=== PATIENT | female | born 1995 | race Caucasian/White ===

== ENCOUNTER 2021-08-27 17:31 | Inpatient (IN) | payer OTHER, SELFPAY ==
--- NOTE | 2021-08-27 | ECG_ITS ---
Test Reason : MEDICAL CLEARANCE Blood Pressure : / mmHG Vent. Rate : 076 BPM Atrial Rate : 076 BPM P-R Int : 176 ms QRS Dur : 090 ms QT Int : 396 ms P-R-T Axes : 048 050 025 degrees QTc Int : 445 ms Normal sinus rhythm Normal ECG No previous ECGs available Referred By: Maxi Perez Electronically Signed By:Ac Smtih
[2021-08-27 17:42] VITALS: BP 153/99; PULSE 120; RESP 16; TEMP 36.8; O2SAT 97; BMI 42.9
[2021-08-27 18:24] LABS: Appearance Urine CLEAR; Color Urine DK YELLOW; Glucose Urine UA NEG (NEG); Leukocyte Esterase Urine NEG (NEG); Nitrite Urine NEG (NEG); Specific Gravity - Urine 1.025 (1.005-1.025); UACC Culture Trigger NO; Urine Blood 3+ (NEG); Urine Ketones NEG (NEG); Urine Protein TRACE MG/DL (NEG-TRACE)
[2021-08-27 18:25] LABS: UPreg QC Valid YES; Urine Pregnancy NEGATIVE (NEGATIVE)
[2021-08-27 18:38] LABS: Amphetamine Screen Urine Not Detected (Not Detect); Barbiturates, Urine Not Detected (Not Detect); Benzodiazepines Screen Urine Not Detected (Not Detect); Cannabinoid Screen Urine POSITIVE (Not Detect); Cocaine Screen Urine Not Detected (Not Detect); Fentanyl, urine Not Detected (Not Detect); Opiate Screen Urine Not Detected (Not Detect); Phencyclidine Screen Urine Not Detected (Not Detect)
[2021-08-27 18:47] LABS: Bacteria Urine 2+ /LPF; Squamous Epithelial Cell Urine 2+ /LPF; WBC Urine 0-2 /HPF (0-4)
[2021-08-27 19:14] LABS: MANUAL DIFF FLAG NO
[2021-08-27 19:20] LABS: Basophils Percent Auto 0.3 % (0-2); Eosinophils Absolute Auto 0.1 X10*3/uL (0.0-0.4); Eosinophils Percent Auto 0.4 % (0-4); Hematocrit 42.2 % (37.0-47.0); Hemoglobin 13.8 g/dl (12.0-16.0); Imm Gran Abs Auto 0.05 X10*3/uL (0.00-0.03); Imm Gran Pct Auto 0.4 % (0.0-0.4); Lymphocytes Absolute Auto 4.5 X10*3/uL (1.2-4.9); Mean Corpuscular HGB Conc 32.7 g/dl (31.0-35.0); Mean Corpuscular Hemoglobin 26.3 pg (27.0-33.0); Mean Corpuscular Volume 80.4 fL (80.0-98.0); Mean Platelet Volume 9.2 fL (9.4-12.3); Monocytes Absolute Auto 0.7 X10*3/uL (0.1-1.2); Monocytes Percent Auto 5.2 % (2-11); Neutrophils Absolute Auto 8.6 x10*3/uL (2.0-8.3); Neutrophils Percent Auto 61.7 % (45-73); Platelet Count 473 X10*3/uL (160-400); Red Blood Count 5.25 X10*6/uL (4.20-5.50); Red Cell Distribution Width 14.3 % (11.0-16.0)
[2021-08-27 19:37] LABS: Alanine Aminotransferase 14 U/L (0-31); Albumin Level 4.6 g/dL (3.5-5.0); Alkaline Phosphatase 99 U/L (39-117); Anion Gap 16 (12-20); Aspartate Amino Transferase 18 U/L (5-31); Bilirubin Total 0.4 mg/dL (0.0-1.0); Blood Urea Nitrogen 15 mg/dL (9-16); Calcium 9.8 mg/dL (8.4-10.2); Carbon Dioxide 21 mmol/L (22-29); Chloride 108 mmol/L (96-108); Creatinine Clr Calc Pharmacy 119.3; Estimated Glomerular Filt Rate > 60; Glucose Random 110 mg/dL (60-115); Potassium 3.9 mmol/L (3.3-5.1); Sodium 141 mmol/L (135-145)
[2021-08-27 20:18] LABS: COVID-19 Test Negative (Negative)
--- NOTE | 2021-08-27 21:22 | ED_ITS ---
HPI - General Adult General Chief complaint: Anxiety Stated complaint: unspecified anxiety disorder Source: patient Mode of arrival: ambulatory Limitations: no limitations History of Present Illness HPI narrative: 26-year-old female presents to ED for direct admission to inpatient psych for severe anxiety. Patient states anxiety so bad she not able to function. Patient states constantly crying. Patient admits not taking her psych medication for 1 week. Patient states she wants to sleep and not wake up, but denies having any actual suicidal thoughts or plan. Patient states severely anxious Related Data Home Medications Medication Instructions Recorded Confirmed bupropion HCl 150 mg 24 hr tablet, 1 tab PO DAILY 08/27/21 08/27/21 extended release escitalopram oxalate 10 mg tablet 1 tab PO DAILY 08/27/21 08/27/21 fluticasone propionate 50 2 spray intranasal QAM 08/27/21 08/27/21 mcg/actuation nasal spray,suspension hydroxyzine HCl 25 mg tablet 1 tab PO QID 08/27/21 08/27/21 loratadine 10 mg tablet 1 tab PO DAILY 08/27/21 08/27/21 Allergies Allergy/AdvReac Type Severity Reaction Status Date / Time codeine Allergy Rash Verified 08/27/21 17:52 morphine Allergy Rash Verified 08/27/21 17:52 Review of Systems Review of Systems: Severe anxiety. No chest pain or shortness of breath. Negative for pleurisy. Negative for swelling of lower extremities, calf pain, or coughing up blood. Negative recent long travel or recent surgery. Yes all other systems are reviewed and are negative PMFSH Social History Social History Advance Directives: No Advance Directives Information Provided: No Physical Exam ED Vital Signs: Vital Signs - 24 hr 08/27/21 17:42 Temperature 98.3 F Pulse Rate 120 H Respiratory Rate 16 Blood Pressure 153/99 H Pulse Oximetry 97 Oxygen Delivery Method Room Air BMI result Body Mass Index 42.9 Const General: cooperative, healthy appearing, comfortable, no acute distress, well developed, alert, awake and Physically active Orientation/consciousness: oriented to time and patient oriented x3 HENMT Head: Yes normal to inspection, Yes No palpable skull fracture present, Yes normocephalic, Yes atraumatic and No abrasion Eyes General: appearance normal, both eyes and all related structures Neck Neck: Yes normal visual inspection, Yes full ROM, Yes no lymphadenopathy, Yes no meningeal signs, Yes trachea midline, Yes supple, No anterior neck swelling and No tender Chest Chest palpation & inspection: normal inspection of the chest and normal palpation of entire chest wall Resp Effort & Inspection: normal respiratory effort and able to speak in complete sentences Auscultation: clear to auscultation bilaterally Cardio Jugular venous distension: no JVD Heart sounds: S1 normal heart sound present and S2 normal heart sound present GI Inspection: Yes normal to inspection and No abdominal wall ecchymosis Palpation (GI): Soft to palpation, not firm, nontender, no guarding and not rigid General: No CVA tenderness and Yes no CVA tenderness Back/Spine/Pelvis Back: no CVA tenderness, No CVA tenderness and No back tenderness Skin General skin exam: no rashes or lesions noted and elasticity normal Neuro General: oriented to time, patient oriented x3, gait normal, tone normal, no meningeal signs and CN's II-XI intact bilaterally Extrem General: Yes normal to inspection and Yes full ROM Psych Other: Anxious and crying Appearance: grossly normal and well kempt Course Course Course Narrative: Patient anxious and crying. Will do basic medical evaluation. Reevaluation(s) Reevaluation #1: Patient labs are normal. Patient hypertensive tachycardic due to anxiety. Psychiatrist ordered clonidine. Time: 21:27 Medical Decision Making [facility] Narrative Medical decision making narrative: Anxiety Lab Data Result diagrams: 08/27/21 19:10 08/27/21 19:10 Labs: Lab Results 08/27/21 08/27/21 08/27/21 Range/Units 18:11 18:11 18:11 WBC (4.8-10.8) X10*3/uL RBC (4.20-5.50) X10*6/uL Hgb (12.0-16.0) g/dl Hct (37.0-47.0) % MCV (80.0-98.0) fL MCH (27.0-33.0) pg MCHC (31.0-35.0) g/dl RDW (11.0-16.0) % Plt Count (160-400) X10*3/uL MPV (9.4-12.3) fL Immature Gran % (Auto) (0.0-0.4) % Neut % (Auto) (45-73) % Lymph % (Auto) (20-40) % Gregg % (Auto) (2-11) % Eos % (Auto) (0-4) % Baso % (Auto) (0-2) % Lymph # (Auto) (1.2-4.9) X10*3/uL [place]gg # (Auto) (0.1-1.2) X10*3/uL Eos # (Auto) (0.0-0.4) X10*3/uL Baso # (Auto) (0.0-0.2) X10*3/uL Abs Immat Gran (auto) (0.00-0.03) X10*3/uL Absolute Neuts (auto) (2.0-8.3) x10*3/uL Absolute Nucleated RBC (0.0-0.012) X10*3/uL Nucleated RBC % (auto) (0.0-0.2) /100WBC Sodium (135-145) mmol/L Potassium (3.3-5.1) mmol/L Chloride (96-108) mmol/L Carbon Dioxide (22-29) mmol/L Anion Gap (12-20) BUN (9-16) mg/dL Creatinine (0.5-1.4) mg/dL Estim Creat Clear Calc Estimated GFR Random Glucose (60-115) mg/dL Calcium (8.4-10.2) mg/dL Total Bilirubin (0.0-1.0) mg/dL AST (5-31) U/L ALT (0-31) U/L Alkaline Phosphatase (39-117) U/L Total Protein (6.5-8.0) g/dL Albumin (3.5-5.0) g/dL Urine Color DK YELLOW Urine Appearance CLEAR Urine pH 6.0 (5.0-8.0) Ur Specific [place] 1.025 (1.005-1.025) Urine Protein TRACE (NEG-TRACE) MG/DL Urine Glucose (UA) NEG (NEG) MG/DL Urine Ketones NEG (NEG) MG/DL Urine Blood 3+ H (NEG) Urine Nitrite NEG (NEG) Ur Leukocyte Esterase NEG (NEG) Urine RBC 1-4 (0) /HPF Urine WBC 0-2 (0-4) /HPF Ur Squamous Epith Cells 2+ /LPF Urine Bacteria 2+ /LPF Urine Test NEGATIVE (NEGATIVE) Urine Opiates Screen Not Detected (Not Detect) Urine Fentanyl Screen Not Detected (Not Detect) Ur Barbiturates Screen Not Detected (Not Detect) Ur Phencyclidine Scrn Not Detected (Not Detect) Ur Amphetamines Screen Not Detected (Not Detect) U Benzodiazepines Scrn Not Detected (Not Detect) Urine Cocaine Screen Not Detected (Not Detect) U Marijuana (THC) Screen POSITIVE H (Not Detect) COVID-19 ([facility]) (Negative) COVID-19 Clin Com 08/27/21 08/27/21 08/27/21 Range/Units 19:10 19:10 19:59 WBC 14.0 H (4.8-10.8) X10*3/uL RBC 5.25 (4.20-5.50) X10*6/uL Hgb 13.8 (12.0-16.0) g/dl Hct 42.2 (37.0-47.0) % MCV 80.4 (80.0-98.0) fL MCH 26.3 L (27.0-33.0) pg MCHC 32.7 (31.0-35.0) g/dl RDW 14.3 (11.0-16.0) % Plt Count 473 H (160-400) X10*3/uL MPV 9.2 L (9.4-12.3) fL Immature Gran % (Auto) 0.4 (0.0-0.4) % Neut % (Auto) 61.7 (45-73) % Lymph % (Auto) 32.0 (20-40) % Gregg % (Auto) 5.2 (2-11) % Eos % (Auto) 0.4 (0-4) % Baso % (Auto) 0.3 (0-2) % Lymph # (Auto) 4.5 (1.2-4.9) X10*3/uL Gregg # (Auto) 0.7 (0.1-1.2) X10*3/uL Eos # (Auto) 0.1 (0.0-0.4) X10*3/uL Baso # (Auto) 0.0 (0.0-0.2) X10*3/uL Abs Immat Gran (auto) 0.05 H (0.00-0.03) X10*3/uL Absolute Neuts (auto) 8.6 H (2.0-8.3) x10*3/uL Absolute Nucleated RBC 0.000 (0.0-0.012) X10*3/uL Nucleated RBC % (auto) 0.0 (0.0-0.2) /100WBC Sodium 141 (135-145) mmol/L Potassium 3.9 (3.3-5.1) mmol/L Chloride 108 (96-108) mmol/L Carbon Dioxide 21 L (22-29) mmol/L Anion Gap 16 (12-20) BUN 15 (9-16) mg/dL Creatinine 0.89 (0.5-1.4) mg/dL Estim Creat Clear Calc 119.3 Estimated GFR > 60 Random Glucose 110 (60-115) mg/dL Calcium 9.8 (8.4-10.2) mg/dL Total Bilirubin 0.4 (0.0-1.0) mg/dL AST 18 (5-31) U/L ALT 14 (0-31) U/L Alkaline Phosphatase 99 (39-117) U/L Total Protein 8.0 (6.5-8.0) g/dL Albumin 4.6 (3.5-5.0) g/dL Urine Color Urine Appearance Urine pH (5.0-8.0) Ur Specific [place] (1.005-1.025) Urine Protein (NEG-TRACE) MG/DL Urine Glucose (UA) (NEG) MG/DL Urine Ketones (NEG) MG/DL Urine Blood (NEG) Urine Nitrite (NEG) Ur Leukocyte Esterase (NEG) Urine RBC (0) /HPF Urine WBC (0-4) /HPF Ur Squamous Epith Cells /LPF Urine Bacteria /LPF Urine Test (NEGATIVE) Urine Opiates Screen (Not Detect) Urine Fentanyl Screen (Not Detect) Ur Barbiturates Screen (Not Detect) Ur Phencyclidine Scrn (Not Detect) Ur Amphetamines Screen (Not Detect) U Benzodiazepines Scrn (Not Detect) Urine Cocaine Screen (Not Detect) U Marijuana (THC) Screen (Not Detect) COVID-19 ([facility]) Negative (Negative) COVID-19 Clin Com See Note Discharge Plan Discharge Clinical Impression: Acute anxiety Patient Disposition: Admitted As Inpatient
[2021-08-27] MEDS: cloNIDine HCL 0.1 MG TABLET PO (21:26)
[2021-08-27 21:27] VITALS: BP 133/89; PULSE 79; RESP 18; TEMP 36.4; O2SAT 97
[2021-08-27 23:04] VITALS: BP 147/105; PULSE 109; RESP 17; TEMP 36.2; O2SAT 99
[2021-08-27 23:06] VITALS: BP 153/99; PULSE 116
[2021-08-27 23:54] VITALS: BMI 43.7
[2021-08-28] MEDS: hydrOXYzine HCL 25 MG TABLET PO ×2 (00:27→08:57)
[2021-08-28] MEDS: traZODone HCL 50 MG TABLET PO (00:27)
[2021-08-28 01:21] VITALS: BP 117/90; PULSE 95
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
[2021-08-28 08:28] VITALS: BP 172/107; PULSE 132; RESP 19; TEMP 37.1; O2SAT 97
[2021-08-28 08:30] VITALS: BP 152/102; PULSE 120
[2021-08-28 09:27] LABS: Cholesterol 180 mg/dL; HDL Cholesterol 44 mg/dL; LDL Cholesterol Calculated 104 mg/dl; Magnesium 2.2 mg/dL (1.6-2.6); Triglycerides 162 mg/dL
[2021-08-28 09:48] LABS: Free T4 (Free Thyroxine) 1.05 ng/dL (0.71-1.85); Thyroid Stimulating Hormone 0.71 uIU/mL (0.32-4.0)
[2021-08-28 10:26] LABS: Folate > 20.0 ng/mL (> or = 4.0); Vitamin B12 222 pg/mL (200-900)
[2021-08-28 12:44] VITALS: BP 127/76; PULSE 78
[2021-08-28] MEDS: cloNIDine HCL 0.1 MG TABLET PO ×3 (12:45→22:44)
[2021-08-28] MEDS: LORazepam 1 MG TABLET PO (12:45)
[2021-08-28] MEDS: Escitalopram Oxalate 10 MG TABLET PO (13:59)
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
[2021-08-28] MEDS: hydrOXYzine HCL 50 MG TABLET PO (16:59)
[2021-08-28 22:41] VITALS: BP 127/66; PULSE 95; RESP 16; TEMP 36.3; O2SAT 98
[2021-08-28] MEDS: clonazePAM 0.5 MG TABLET PO (22:44)
[2021-08-29 06:00] VITALS: BP 137/85; PULSE 85; RESP 18; TEMP 36.8; O2SAT 99
[2021-08-29] MEDS: Escitalopram Oxalate 10 MG TABLET PO (09:12)
[2021-08-29] MEDS: hydrOXYzine HCL 50 MG TABLET PO ×2 (09:13→20:17)
[2021-08-29] MEDS: clonazePAM 0.5 MG TABLET PO ×2 (09:13→22:19)
[2021-08-29] MEDS: cloNIDine HCL 0.1 MG TABLET PO ×3 (09:13→22:19)
[2021-08-29] MEDS: Acetaminophen 325 MG TABLET 650 MG PO (10:39)
[2021-08-29 14:32] VITALS: BP 108/71; PULSE 72
--- NOTE | 2021-08-29 15:29 | HO.PM.IMCN ---
History of Present Illness Data of Consult Service Date: 08/29/21 Requesting physician: Kelly Rodrigues Primary Care Provider: Rhett Wild MD HPI 26-year-old woman with no significant medical history admitted to inpatient psych for psychiatric care. She does have elevated white blood cell count with any signs of infection. She has no acute medical complaints at this time. Review of Systems Review of Systems: Appearing in no acute distress head is normocephalic atraumatic eyes pupils are PERRLA sclera is anicteric mouth throat mucous membranes are intact and moist neck is supple no lymphadenopathy, no JVD noted lung sounds are clear to auscultation heart regular rate rhythm, clear S1, S2 positive bowel sounds, abdomen is soft, nontender neuro patient is alert x3, no focal deficits PMFSH Medical History (Updated 08/29/21 @ 16:13 by Robina Rick NP) Broken arm Endometriosis Family History (Updated 08/29/21 @ 16:14 by Robina Rick NP) Mother Diabetes mellitus Surgical History (Updated 08/29/21 @ 16:13 by Robina Rick NP) History of removal of ovarian cyst Social History Household Members: Significant Other Household Members Other:: BOY FRIEND OF 2 YEARS Housing: Apartment Do you presently have visiting nurse or other home services: No Patient Tobacco Use Status: Never used Tobacco Smoked in Last 30 Days: No e-Cigarette/Vaping Use: Never Used Patient Interested in Nicotine Replacement: No Patient Given Instructions on How to Stop Smoking: No Second Hand Smoke Exposure: No Use of substances other than those prescribed or required for medical reasons: Yes Substance Use Type: Marijuana Substance Use Frequency: Daily Last Used Substance: Just Prior to Admission Currently Displaying Signs/Symptoms of Drug Intoxication Withdrawal: No Other Past Substance Use Problem:: NONE Any prior treatment program specific to substance use: No Have you been hit, kicked, punched, or otherwise hurt by someone within the past year? If so, by whom?: No (PT REPORTS NO TRAUMA HX) Do you feel safe in your current relationship?: Yes Is there a partner from a previous relationship who is making you feel unsafe now?: No Are you made to feel afraid or neglected: No Advance Directives: No Advance Directives Information Provided: No Advance Directives on File: No Do you have thoughts of harming others: None Do you have a plan to hurt others: No Plan Recently lost weight without trying: Yes How much weight loss: 2-13 pounds Eating poorly because of decreased appetite: Yes Nutrition screen score: 4 Nutrition Risks: No Nutritional Risk and Acute nausea or vomiting x1 week Patient : No : No Poor oral hygiene: No service: No Sexual orientation: Did not discuss. Meds Allergies Allergy/AdvReac Type Severity Reaction Status Date / Time codeine Allergy Rash Verified 08/27/21 17:52 morphine Allergy Rash Verified 08/27/21 17:52 Active Medications: Current Medications Acetaminophen (Acetaminophen 325 Mg Tablet) 650 mg PO Q6H PRN PRN Reason: Headache/Pain Mild Scale (1-3) Last Admin: 08/29/21 10:39 Dose: 650 mg Al Hydroxide/Mg Hydroxide (Magnesium Hydrox/Alum Hydrox 30 Ml Oral.Susp) 30 ml PO Q6H PRN PRN Reason: Heartburn/Nausea Clonazepam (Clonazepam 0.5 Mg Tablet) 0.5 mg PO BID GUSTAVO Last Admin: 08/29/21 09:13 Dose: 0.5 mg Clonidine HCl (Clonidine Hcl 0.1 Mg Tablet) 0.1 mg PO Q2H PRN; Protocol PRN Reason: anxiety Clonidine HCl (Clonidine Hcl 0.1 Mg Tablet) 0.1 mg PO TID GUSTAVO; Protocol Last Admin: 08/29/21 14:35 Dose: 0.1 mg Escitalopram Oxalate (Escitalopram Oxalate 10 Mg Tablet) 10 mg PO DAILY [facility] Last Admin: 08/29/21 09:12 Dose: 10 mg Hydroxyzine HCl (Hydroxyzine Hcl 50 Mg Tablet) 50 mg PO Q4H PRN PRN Reason: Anxiety Last Admin: 08/29/21 09:13 Dose: 50 mg Magnesium Hydroxide (Milk Of Magnesia 30 Ml Oral.Susp) 30 ml PO DAILY PRN PRN Reason: Constipation Non-Formulary Medication (Apri) 0.15 mg PO DAILY GUSTAVO Trazodone HCl (Trazodone Hcl 50 Mg Tablet) 50 mg PO BEDTIME PRN PRN Reason: Insomnia Last Admin: 08/28/21 00:27 Dose: 50 mg Home Medications Medication Instructions Recorded Confirmed Last Taken Type escitalopram oxalate 10 mg tablet 1 tab PO DAILY 08/27/21 08/27/21 Unknown History fluticasone propionate 50 2 spray intranasal QAM 08/27/21 08/27/21 Unknown History mcg/actuation nasal spray,suspension hydroxyzine HCl 25 mg tablet 1 tab PO QID PRN Anxiety 08/27/21 08/27/21 Unknown History loratadine 10 mg tablet 1 tab PO DAILY 08/27/21 08/27/21 Unknown History cromolyn 4 % eye drops 1 drp ophthalmic (eye) QID PRN 08/28/21 08/28/21 08/27/21 History Anxiety 25 MG Physical Exam Vital Signs and Narrative: Vital Signs: Last Vital Signs Temp 98.3 F 08/29/21 06:00 Pulse 72 08/29/21 14:32 Resp 18 08/29/21 06:00 BP 108/71 08/29/21 14:32 Pulse Ox 99 08/29/21 06:00 O2 Del Method 08/29/21 06:00 BMI result Body Mass Index 43.7 Appearing in no acute distress head is normocephalic atraumatic eyes pupils are PERRLA sclera is anicteric lung sounds are clear to auscultation heart regular rate rhythm positive bowel sounds neuro patient is alert x3, no focal deficits Cranial nerves 2-12 are grossly intact without focal deficits Results Labs CBC and Chem 7: 08/27/21 19:10 08/27/21 19:10 Assessment and Plan (1) Depressive disorder: Status: Acute Plan 26-year-old man admitted to adult psych for psychiatric care Leukocytosis No signs of infection Recheck CBC tomorrow Mental health Management as per psychiatric team Attending Dr. Daigle
--- NOTE | 2021-08-29 16:16 | HO.PSYCHPN ---
Subjective Subjective Date of Service: 08/29/21 Reason For Visit: anxiety, med nonadherence Interim History: pt seen in her room, face down on the bed. she declines to turn over to face MD. she engages with MD with face into the pillow. she states her BF is in crisis and she is worried about him. she has no requests. she is just feeling sad. she is trying to rest. she agrees to continue with the current regimen. per staff, labile, anxious. crying this morning. Mental Status Exam Mental Status Exam Narrative: adequately dressed and groomed, cooperative, no PMA/PMR. speech nml in rate, amount, loudness, latency. thoughts linear and logical, no delusions or paranoia evident. mood sad. no SI/HI/AVH expressed. Diagnostics Vital Signs (24Hr): Vital Signs - 24 hr 08/28/21 22:41 08/29/21 06:00 08/29/21 14:32 Temperature 97.4 F 98.3 F Pulse Rate 95 85 72 Respiratory Rate 16 18 Blood Pressure 127/66 137/85 108/71 Pulse Oximetry 98 99 Oxygen Delivery Method Room Air Room Air BMI result Body Mass Index 43.7 Labs Results: 08/27/21 19:10 08/27/21 19:10 Labs: Laboratory Results - last 48 hr 08/27/21 08/27/21 08/27/21 18:11 18:11 18:11 WBC RBC Hgb Hct MCV MCH MCHC RDW Plt Count MPV Immature Gran % (Auto) Neut % (Auto) Lymph % (Auto) Saunders % (Auto) Eos % (Auto) Baso % (Auto) Lymph # (Auto) Saunders # (Auto) Eos # (Auto) Baso # (Auto) Abs Immat Gran (auto) Absolute Neuts (auto) Absolute Nucleated RBC Nucleated RBC % (auto) Sodium Potassium Chloride Carbon Dioxide Anion Gap BUN Creatinine Estim Creat Clear Calc Estimated GFR Random Glucose Calcium Magnesium Total Bilirubin AST ALT Alkaline Phosphatase Total Protein Albumin Triglycerides Cholesterol LDL Cholesterol, Calc HDL Cholesterol Vitamin B12 Folate TSH Free T4 Urine Color DK YELLOW Urine Appearance CLEAR Urine pH 6.0 Ur Specific [place] 1.025 Urine Protein TRACE Urine Glucose (UA) NEG Urine Ketones NEG Urine Blood 3+ H Urine Nitrite NEG Ur Leukocyte Esterase NEG Urine RBC 1-4 Urine WBC 0-2 Ur Squamous Epith Cells 2+ Urine Bacteria 2+ Urine Test NEGATIVE Urine Opiates Screen Not Detected Urine Fentanyl Screen Not Detected Ur Barbiturates Screen Not Detected Ur Phencyclidine Scrn Not Detected Ur Amphetamines Screen Not Detected U Benzodiazepines Scrn Not Detected Urine Cocaine Screen Not Detected U Marijuana (THC) Screen POSITIVE H COVID-19 ([facility]) COVID-[employer] 08/27/21 08/27/21 08/27/21 19:10 19:10 19:59 WBC 14.0 H RBC 5.25 Hgb 13.8 Hct 42.2 MCV 80.4 MCH 26.3 L MCHC 32.7 RDW 14.3 Plt Count 473 H MPV 9.2 L Immature Gran % (Auto) 0.4 Neut % (Auto) 61.7 Lymph % (Auto) 32.0 Saunders % (Auto) 5.2 Eos % (Auto) 0.4 Baso % (Auto) 0.3 Lymph # (Auto) 4.5 Saunders # (Auto) 0.7 Eos # (Auto) 0.1 Baso # (Auto) 0.0 Abs Immat Gran (auto) 0.05 H Absolute Neuts (auto) 8.6 H Absolute Nucleated RBC 0.000 Nucleated RBC % (auto) 0.0 Sodium 141 Potassium 3.9 Chloride 108 Carbon Dioxide 21 L Anion Gap 16 BUN 15 Creatinine 0.89 Estim Creat Clear Calc 119.3 Estimated GFR > 60 Random Glucose 110 Calcium 9.8 Magnesium Total Bilirubin 0.4 AST 18 ALT 14 Alkaline Phosphatase 99 Total Protein 8.0 Albumin 4.6 Triglycerides Cholesterol LDL Cholesterol, Calc HDL Cholesterol Vitamin B12 Folate TSH Free T4 Urine Color Urine Appearance Urine pH Ur Specific [place] Urine Protein Urine Glucose (UA) Urine Ketones Urine Blood Urine Nitrite Ur Leukocyte Esterase Urine RBC Urine WBC Ur Squamous Epith Cells Urine Bacteria Urine Test Urine Opiates Screen Urine Fentanyl Screen Ur Barbiturates Screen Ur Phencyclidine Scrn Ur Amphetamines Screen U Benzodiazepines Scrn Urine Cocaine Screen U Marijuana (THC) Screen COVID-19 ([facility]) Negative COVID-[employer] See Note 08/28/21 08/28/21 08:34 08:34 WBC RBC Hgb Hct MCV MCH MCHC RDW Plt Count MPV Immature Gran % (Auto) Neut % (Auto) Lymph % (Auto) Saunders % (Auto) Eos % (Auto) Baso % (Auto) Lymph # (Auto) Saunders # (Auto) Eos # (Auto) Baso # (Auto) Abs Immat Gran (auto) Absolute Neuts (auto) Absolute Nucleated RBC Nucleated RBC % (auto) Sodium Potassium Chloride Carbon Dioxide Anion Gap BUN Creatinine Estim Creat Clear Calc Estimated GFR Random Glucose Calcium Magnesium 2.2 Total Bilirubin AST ALT Alkaline Phosphatase Total Protein Albumin Triglycerides 162 Cholesterol 180 LDL Cholesterol, Calc 104 HDL Cholesterol 44 Vitamin B12 222 Folate > 20.0 TSH 0.71 Free T4 1.05 Urine Color Urine Appearance Urine pH Ur Specific [place] Urine Protein Urine Glucose (UA) Urine Ketones Urine Blood Urine Nitrite Ur Leukocyte Esterase Urine RBC Urine WBC Ur Squamous Epith Cells Urine Bacteria Urine Test Urine Opiates Screen Urine Fentanyl Screen Ur Barbiturates Screen Ur Phencyclidine Scrn Ur Amphetamines Screen U Benzodiazepines Scrn Urine Cocaine Screen U Marijuana (THC) Screen COVID-19 ([facility]) COVID-19 Clin Com Medications Medications Current Medications Acetaminophen (Acetaminophen 325 Mg Tablet) 650 mg PO Q6H PRN PRN Reason: Headache/Pain Mild Scale (1-3) Last Admin: 08/29/21 10:39 Dose: 650 mg Al Hydroxide/Mg Hydroxide (Magnesium Hydrox/Alum Hydrox 30 Ml Oral.Susp) 30 ml PO Q6H PRN PRN Reason: Heartburn/Nausea Clonazepam (Clonazepam 0.5 Mg Tablet) 0.5 mg PO BID [facility] Last Admin: 08/29/21 09:13 Dose: 0.5 mg Clonidine HCl (Clonidine Hcl 0.1 Mg Tablet) 0.1 mg PO Q2H PRN; Protocol PRN Reason: anxiety Clonidine HCl (Clonidine Hcl 0.1 Mg Tablet) 0.1 mg PO TID [facility]; Protocol Last Admin: 08/29/21 14:35 Dose: 0.1 mg Escitalopram Oxalate (Escitalopram Oxalate 10 Mg Tablet) 10 mg PO DAILY [facility] Last Admin: 08/29/21 09:12 Dose: 10 mg Hydroxyzine HCl (Hydroxyzine Hcl 50 Mg Tablet) 50 mg PO Q4H PRN PRN Reason: Anxiety Last Admin: 08/29/21 09:13 Dose: 50 mg Magnesium Hydroxide (Milk Of Magnesia 30 Ml Oral.Susp) 30 ml PO DAILY PRN PRN Reason: Constipation Non-Formulary Medication (Apri) 0.15 mg PO DAILY [facility] Trazodone HCl (Trazodone Hcl 50 Mg Tablet) 50 mg PO BEDTIME PRN PRN Reason: Insomnia Last Admin: 08/28/21 00:27 Dose: 50 mg Allergies Allergies Allergy/AdvReac Type Severity Reaction Status Date / Time codeine Allergy Rash Verified 08/27/21 17:52 morphine Allergy Rash Verified 08/27/21 17:52 Assessment & Plan Assessment & Plan (1) Depressive disorder: Status: Acute Code(s): F32.A - Depression, unspecified Plan 08/28: for anxiety and depression, restart lexapro. for HTN and acute anxiety, start clonidine 0.1 mg TID. for acute anxiety start klonopin 0.5 BID. hydroxyzine 50 mg Q4H PRN anxiety also available. 08/29: continue current mgmt. I spent ___15___ minutes with the patient and/or on the patient floor today, greater than?50% of which was spent counseling/coordinating care. Reason for contiued inpatient stay Substantial Risk for: harm to self, inability to function and rapid decompensation
[2021-08-29 22:18] VITALS: BP 103/70; PULSE 97; RESP 18; TEMP 36.4; O2SAT 98
[2021-08-30 06:00] VITALS: BP 126/97; PULSE 120; RESP 18; TEMP 36.7; O2SAT 95
[2021-08-30 07:12] LABS: Hematocrit 42.9 % (37.0-47.0); Hemoglobin 14.2 g/dl (12.0-16.0); Mean Corpuscular HGB Conc 33.1 g/dl (31.0-35.0); Mean Corpuscular Hemoglobin 26.6 pg (27.0-33.0); Mean Corpuscular Volume 80.5 fL (80.0-98.0); Mean Platelet Volume 9.2 fL (9.4-12.3); Platelet Count 409 X10*3/uL (160-400); Red Blood Count 5.33 X10*6/uL (4.20-5.50); Red Cell Distribution Width 13.7 % (11.0-16.0); White Blood Count 9.8 X10*3/uL (4.8-10.8)
[2021-08-30] MEDS: clonazePAM 0.5 MG TABLET PO (09:41)
[2021-08-30] MEDS: Escitalopram Oxalate 10 MG TABLET PO (09:41)
[2021-08-30] MEDS: cloNIDine HCL 0.1 MG TABLET PO ×3 (09:42→23:23)
[2021-08-30 14:41] VITALS: BP 125/72; PULSE 91; RESP 18; O2SAT 96
--- NOTE | 2021-08-30 15:42 | P.PNPSI_ITS ---
Subjective Subjective Date of Service: 08/30/21 Reason For Visit: anxiety, med nonadherence Interim History: found lying in bed as per yesterday. today she rolls over to face MD for naman nicholson. states she is having a rough day bcse she got a call from her BF who is going from crisis to be admitted to inpatient psychiatry. also stressed about money. feels she is not getting much from groups here, wanted to work on coping skills. discussion held around PHP/IOP as perhaps a better treatment setting for her. feels her anxiety is a little bit better than when she came in, all things considered. declines to change medications for now. per staff, had visits yesterday. signed 3-day notice. c/o anxiety overnight. slept through the night. Mental Status Exam Mental Status Exam Narrative: adequately dressed and groomed, cooperative, no PMA/PMR. speech nml in rate, amount, loudness, latency. thoughts linear and logical, no delusions or paranoia evident. anxiety a little bit better. no SI/HI/AVH expressed. Diagnostics Vital Signs (24Hr): Vital Signs - 24 hr 08/29/21 22:18 08/30/21 06:00 08/30/21 14:41 Temperature 97.6 F 98.1 F Pulse Rate 97 120 H 91 Respiratory Rate 18 18 18 Blood Pressure 103/70 126/97 H 125/72 Pulse Oximetry 98 95 96 Oxygen Delivery Method Room Air Room Air Room Air BMI result Body Mass Index 43.7 Labs Results: 08/30/21 07:01 08/27/21 19:10 Labs: Laboratory Results - last 48 hr 08/30/21 07:01 WBC 9.8 RBC 5.33 Hgb 14.2 Hct 42.9 MCV 80.5 MCH 26.6 L MCHC 33.1 RDW 13.7 Plt Count 409 H MPV 9.2 L Absolute Nucleated RBC 0.000 Nucleated RBC % (auto) 0.0 Medications Medications Current Medications Acetaminophen (Acetaminophen 325 Mg Tablet) 650 mg PO Q6H PRN PRN Reason: Headache/Pain Mild Scale (1-3) Last Admin: 08/29/21 10:39 Dose: 650 mg Al Hydroxide/Mg Hydroxide (Magnesium Hydrox/Alum Hydrox 30 Ml Oral.Susp) 30 ml PO Q6H PRN PRN Reason: Heartburn/Nausea Clonazepam (Clonazepam 0.5 Mg Tablet) 0.25 mg PO BID [facility] Clonidine HCl (Clonidine Hcl 0.1 Mg Tablet) 0.1 mg PO Q2H PRN; Protocol PRN Reason: anxiety Clonidine HCl (Clonidine Hcl 0.1 Mg Tablet) 0.1 mg PO TID [facility]; Protocol Last Admin: 08/30/21 14:48 Dose: 0.1 mg Escitalopram Oxalate (Escitalopram Oxalate 10 Mg Tablet) 10 mg PO DAILY [facility] Last Admin: 08/30/21 09:41 Dose: 10 mg Hydroxyzine HCl (Hydroxyzine Hcl 50 Mg Tablet) 50 mg PO Q4H PRN PRN Reason: Anxiety Last Admin: 08/29/21 20:17 Dose: 50 mg Magnesium Hydroxide (Milk Of Magnesia 30 Ml Oral.Susp) 30 ml PO DAILY PRN PRN Reason: Constipation Melatonin (Melatonin 3 Mg Tablet) 6 mg PO BEDTIME PRN PRN Reason: Insomnia Pt Own (Apri 0.15 Mg ()) 0.15 mg PO DAILY [facility] Last Admin: 08/30/21 09:41 Dose: 0.15 mg Trazodone HCl (Trazodone Hcl 50 Mg Tablet) 50 mg PO BEDTIME PRN PRN Reason: Insomnia Last Admin: 08/28/21 00:27 Dose: 50 mg Allergies Allergies Allergy/AdvReac Type Severity Reaction Status Date / Time codeine Allergy Rash Verified 08/27/21 17:52 morphine Allergy Rash Verified 08/27/21 17:52 Assessment & Plan Assessment & Plan (1) Depressive disorder: Status: Acute Code(s): F32.A - Depression, unspecified Plan 08/28: for anxiety and depression, restarted lexapro. for HTN and acute anxiety, started clonidine 0.1 mg TID. for acute anxiety started klonopin 0.5 BID. hydroxyzine 50 mg Q4H PRN anxiety also available. 08/29: continue current mgmt. 08/30: continue current mgmt. declines increase in clonidine, states anxiety a bit better. begin taper of klonopin to 0.25 BID in preparation for no klonopin at discharge. I spent ___20___ minutes with the patient and/or on the patient floor today, greater than?50% of which was spent counseling/coordinating care. Reason for contiued inpatient stay Substantial Risk for: harm to self, inability to function and rapid decompensation
[2021-08-30] MEDS: hydrOXYzine HCL 50 MG TABLET PO (19:15)
[2021-08-30 20:15] VITALS: BP 141/73; PULSE 92; RESP 18; TEMP 36.3; O2SAT 97
[2021-08-30] MEDS: clonazePAM 0.5 MG TABLET 0.25 MG PO (23:24)
[2021-08-30] MEDS: traZODone HCL 50 MG TABLET PO (23:24)
[2021-08-31] MEDS: cloNIDine HCL 0.1 MG TABLET PO ×3 (09:10→22:01)
[2021-08-31] MEDS: clonazePAM 0.5 MG TABLET 0.25 MG PO ×2 (09:10→22:01)
[2021-08-31] MEDS: Escitalopram Oxalate 10 MG TABLET PO (09:10)
[2021-08-31 09:14] VITALS: BP 125/74; PULSE 87; RESP 16; TEMP 36.6; O2SAT 93
[2021-08-31] MEDS: hydrOXYzine HCL 50 MG TABLET PO (10:24)
--- NOTE | 2021-08-31 12:09 | HO.PSYCHPN ---
Subjective Subjective Date of Service: 08/31/21 Reason For Visit: anxiety, med nonadherence Interim History: pt reports feeling ambivalent. anxious re her BF's being admitted to inpatient psych somewhere and she doesn't know where. anxious to have appointments with therapist and prescriber set up prior to discharge. willing to discharge tomorrow if that can be accommodated. otherwise feeling reasonably well and safe here. plan made to discharge tomorrow. per staff, 3-day matures on . dep/anx ongoing. mood better, however. feeling safe. attending groups. social with peers. PRN trazodone. slept well. Mental Status Exam Mental Status Exam Narrative: adequately dressed and groomed, cooperative, no PMA/PMR. speech nml in rate, amount, loudness, latency. thoughts linear and logical, no delusions or paranoia evident. anxiety. no SI/HI/AVH expressed. Diagnostics Vital Signs (24Hr): Vital Signs - 24 hr 08/30/21 14:41 08/30/21 20:15 08/31/21 09:14 Temperature 97.4 F 97.8 F Pulse Rate 91 92 87 Respiratory Rate 18 18 16 Blood Pressure 125/72 141/73 H 125/74 Pulse Oximetry 96 97 93 Oxygen Delivery Method Room Air Room Air Room Air BMI result Body Mass Index 43.7 Labs Results: 08/30/21 07:01 08/27/21 19:10 Labs: Laboratory Results - last 48 hr 08/30/21 07:01 WBC 9.8 RBC 5.33 Hgb 14.2 Hct 42.9 MCV 80.5 MCH 26.6 L MCHC 33.1 RDW 13.7 Plt Count 409 H MPV 9.2 L Absolute Nucleated RBC 0.000 Nucleated RBC % (auto) 0.0 Medications Medications Current Medications Acetaminophen (Acetaminophen 325 Mg Tablet) 650 mg PO Q6H PRN PRN Reason: Headache/Pain Mild Scale (1-3) Last Admin: 08/29/21 10:39 Dose: 650 mg Al Hydroxide/Mg Hydroxide (Magnesium Hydrox/Alum Hydrox 30 Ml Oral.Susp) 30 ml PO Q6H PRN PRN Reason: Heartburn/Nausea Clonazepam (Clonazepam 0.5 Mg Tablet) 0.25 mg PO BID [facility] Last Admin: 08/31/21 09:10 Dose: 0.25 mg Clonidine HCl (Clonidine Hcl 0.1 Mg Tablet) 0.1 mg PO Q2H PRN; Protocol PRN Reason: anxiety Clonidine HCl (Clonidine Hcl 0.1 Mg Tablet) 0.1 mg PO TID [facility]; Protocol Last Admin: 08/31/21 09:10 Dose: 0.1 mg Escitalopram Oxalate (Escitalopram Oxalate 10 Mg Tablet) 10 mg PO DAILY [facility] Last Admin: 08/31/21 09:10 Dose: 10 mg Hydroxyzine HCl (Hydroxyzine Hcl 50 Mg Tablet) 50 mg PO Q4H PRN PRN Reason: Anxiety Last Admin: 08/31/21 10:24 Dose: 50 mg Magnesium Hydroxide (Milk Of Magnesia 30 Ml Oral.Susp) 30 ml PO DAILY PRN PRN Reason: Constipation Melatonin (Melatonin 3 Mg Tablet) 6 mg PO BEDTIME PRN PRN Reason: Insomnia Pt Own (Apri 0.15 Mg ()) 0.15 mg PO DAILY [facility] Last Admin: 08/31/21 09:13 Dose: 0.15 mg Trazodone HCl (Trazodone Hcl 50 Mg Tablet) 50 mg PO BEDTIME PRN PRN Reason: Insomnia Last Admin: 08/30/21 23:24 Dose: 50 mg Allergies Allergies Allergy/AdvReac Type Severity Reaction Status Date / Time codeine Allergy Rash Verified 08/27/21 17:52 morphine Allergy Rash Verified 08/27/21 17:52 Assessment & Plan Assessment & Plan (1) Depressive disorder: Status: Acute Code(s): F32.A - Depression, unspecified Plan 08/28: for anxiety and depression, restarted lexapro. for HTN and acute anxiety, started clonidine 0.1 mg TID. for acute anxiety started klonopin 0.5 BID. hydroxyzine 50 mg Q4H PRN anxiety also available. 08/29: continue current mgmt. 08/30: continue current mgmt. declines increase in clonidine, states anxiety a bit better. begin taper of klonopin to 0.25 BID in preparation for no klonopin at discharge. 08/31: no changes. DC klonopin tomorrow morning and discharge. stable. I spent __20____ minutes with the patient and/or on the patient floor today, greater than?50% of which was spent counseling/coordinating care. Reason for contiued inpatient stay Substantial Risk for: rapid decompensation
[2021-08-31 14:31] VITALS: BP 111/58; PULSE 86
[2021-08-31 20:57] VITALS: BP 115/88; PULSE 90; RESP 17; TEMP 36.5; O2SAT 100
[2021-08-31] MEDS: Melatonin 3 MG TABLET 6 MG PO (22:39)
[2021-09-01 08:41] VITALS: BP 105/59; PULSE 95; RESP 17; TEMP 36.7; O2SAT 96
[2021-09-01] MEDS: Escitalopram Oxalate 10 MG TABLET PO (08:43)
[2021-09-01] MEDS: cloNIDine HCL 0.1 MG TABLET PO (08:44)
[2021-09-01] MEDS: clonazePAM 0.5 MG TABLET 0.25 MG PO (08:44)
[2021-09-01] MEDS: Loperamide HCl 2 MG CAPSULE PO (09:53)
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
[2021-09-01] MEDS: hydrOXYzine HCL 50 MG TABLET PO (11:00)
--- NOTE | 2021-09-01 11:32 | PC.NURSE ---
Patient is alert and oriented x4. Patient is pleasant and cooperative upon approach. In agreement with discharge and discharge instructions. Patient reports that she is having some mild anxiety, but it is manageable. Patient denies SI/HI/AH/VH. Patient denies acute physical complaints at this time.
== END 2021-09-01 11:06 | disposition home or self-care (01) | DRG 754 ==
LOC: HO.ED 22:38 → HO.PADLT16 22:39
PROVIDERS: Nurse Practitioner Acute Care; Physician Assistant; Registered Nurse; Admitting Provider Psychiatry & Neurology Psychiatry; Emergency Provider Internal Medicine; PCP Family Medicine; Visit Provider Psychiatry & Neurology Psychiatry
DX: F32.A Depression, unspecified (principal); R45.851 Suicidal ideations; Z91.14 Patient's other noncompliance with medication regimen; F41.9 Anxiety disorder, unspecified; I10 Essential (primary) hypertension; D72.829 Elevated white blood cell count, unspecified; Z20.822 Contact with and (suspected) exposure to COVID-19; Z79.51 Long term (current) use of inhaled steroids; Z88.5 Allergy status to narcotic agent; Z79.899 Other long term (current) drug therapy
CPT/HCPCS: 36415; 80053; 80061; 80307; 81001; 81025; 82607; 82746; 83735; 84439; 84443; 85025; 85027; 87635; 93005; 99285